=== PATIENT | female | born 1935 | race African-American/Black ===

== ENCOUNTER 2023-04-05 12:29 | Emergency (ER) | payer MEDICARE, OTHER ==
[~2023-04-05] VITALS: Ht 165.1 cm; Wt 80.0 kg
[~2023-04-05 12:29] MED LIST: METF-414 PO
[2023-04-05 12:31] VITALS: O2SAT 99
[2023-04-05 14:57] LABS: ALANINE AMINOTRANSFERASE 22 IU/L (10-49); ALBUMIN 4.4 g/dL (3.2-4.8); ASPARTATE AMINOTRANSFERASE 39 IU/L (<34); BILIRUBIN TOTAL 0.6 mg/dL (0.1-1.0); CALCIUM 10.3 mg/dL (8.7-10.4); CARBON DIOXIDE 26 mEq/L (21-32); CHLORIDE 102 mEq/L (98-107); CREATININE 0.8 mg/dL (0.6-1.0); GLUCOSE 150 mg/dL (70-105); POTASSIUM 4.1 mEq/L (3.5-5.1); PROTEIN TOTAL 7.1 g/dL (6.0-8.3); SODIUM 138 mEq/L (136-145); TROPONIN I HIGH SENSITIVITY < 4 ng/L (3.0-34); UREA NITROGEN BLOOD 14 mg/dL (9-23)
[2023-04-05 16:01] VITALS: BP 112/52; PULSE 90; RESP 13; TEMP 98.4
== END 2023-04-05 16:46 | disposition left against medical advice (07) ==
LOC: ER 12:29
DX: R55 Syncope and collapse (principal); E11.9 Type 2 diabetes mellitus without complications
CPT/HCPCS: 36415; 71045; 80053; 84484; 93005; 99283; 99285